=== PATIENT | female | born 1990 | race American Indian/Alaskan Native ===

== ENCOUNTER 2021-07-05 21:43 | Inpatient (IN) | payer SELFPAY ==
[2021-07-05] MEDS ORDERED: PANTOPRAZOLE 40 MG INJ IV ONE (22:17)
[2021-07-05] MEDS ORDERED: SODIUM CHLORIDE 0.9% 1000 ML 1,000 ML IV ONE ×2 (22:17→22:53)
[2021-07-05] MEDS ORDERED: MORPHINE 4 MG/1 ML INJ IV ONE (22:17)
--- NOTE | 2021-07-05 22:17 | XRay Report ---
CHEST 1 VIEW 07/05/2021 9:57 PM INDICATION / CLINICAL INFORMATION: GI Bleed. COMPARISON: None available. FINDINGS: SUPPORT DEVICES: None. HEART / MEDIASTINUM: No significant abnormality. LUNGS / PLEURA: No significant pulmonary or pleural abnormality. No pneumothorax. ADDITIONAL FINDINGS: No significant additional findings. IMPRESSION: 1. No acute findings. Signer Name: Sherman Merrill MD Signed: 07/05/2021 10:13 PM Workstation Name: [id number]
[2021-07-05 22:26] LABS: Basophils # (Auto) 0.1 K/mm3 (0.0-0.1); Basophils % (Auto) 0.7 % (0.0-1.8); Eosinophils % (Auto) 0.1 % (0.0-4.3); Hemoglobin 16.2 gm/dl (10.1-14.3); Lymphocytes % (Auto) 17.8 % (13.4-35.0); Mean Corpuscular HGB Conc 34 % (30-34); Mean Corpuscular Volume 96 fl (79-97); Monocytes # (Auto) 0.5 K/mm3 (0.0-0.8); Monocytes % (Auto) 4.6 % (0.0-7.3); Platelet Count 327 K/mm3 (140-440); Red Blood Count 4.89 M/mm3 (3.65-5.03); Red Cell Distribution Width 15.2 % (13.2-15.2)
[2021-07-05 22:40] LABS: INR 0.85 (0.87-1.13)
[2021-07-05 22:43] LABS: Alanine Aminotransferase 22 units/L (7-56); Albumin 4.4 g/dL (3.9-5); BUN/Creatinine Ratio 15; Blood Urea Nitrogen 12 mg/dL (7-17); Calcium 9.3 mg/dL (8.4-10.2); Hemolysis Index 29
[2021-07-05] MEDS ORDERED: ONDANSETRON 4 MG/2 ML INJ IV ONE (22:53)
--- NOTE | 2021-07-05 23:04 | Cat Scan Report ---
CT ABDOMEN AND PELVIS WITH CONTRAST HISTORY: PAIN COMPARISON: None TECHNIQUE: Routine abdominal and pelvic CT exam performed following intravenous contrast administrat ion. 100 cc Omnipaque [address] scans at this location are performed using CT dose reduct ion for ALARA by means of automated exposure control. FINDINGS: CT ABDOMEN: Lung Bases: No significant abnormality. Liver: No significant abnormality. Biliary: No significant abnormality. Spleen: No significant abnormality. Unenlarged. Pancreas: No significant abnormality. Adrenals: No significant abnormality. Kidneys: No significant abnormality. Lymphatics: No lymphadenopathy. Vasculature: No significant abnormality. Bowel/Peritoneum: No significant abnormality. No free air. No free fluid. Normal appendix. CT PELVIC: : IUD in the uterus. Lymphatics: No lymphadenopathy. Osseous Structures: No aggressive appearing osseous lesions. Additional Findings: None IMPRESSION: 1. No acute findings or findings to explain the patient's symptoms. Signer Name: Alex French MD Signed: 07/05/2021 11:00 PM Workstation Name: [id number]
--- NOTE | 2021-07-05 23:38 | Emergency Department Report ---
ED N/V/D HPI - General Chief complaint: Abdominal Pain Stated complaint: ABDONINAL PAIN Time Seen by Provider: 07/05/21 21:52 Source: patient Mode of arrival: Ambulatory Limitations: No Limitations - History of Present Illness Initial comments: ABDOMINAL PAIN AND VOMITING BLOOD SINCE YESTERDAY. [place] , [place] , started vomiting last night then started having severe vomiting with blood clots , admit to drinking daily and sometimes uses cocaine not , - Related Data Previous Rx's Medication Instructions Recorded Last Taken Type Multivitamin Tab W-MINERAL 1 each PO QDAY #30 tablet 07/06/21 Unknown Rx [Multiple Vitamin/Mineral (Theragran M)] Pantoprazole [Protonix TAB] 40 mg PO BIDAC #30 tablet 07/06/21 Unknown Rx Thiamine [Vitamin B-1] 100 mg PO QDAY #30 tablet 07/06/21 Unknown Rx Allergies Allergy/AdvReac Type Severity Reaction Status Date / Time No Known Allergies Allergy Verified 07/05/21 22:13 ED Review of Systems ROS: Stated complaint: ABDONINAL PAIN Other details as noted in HPI Constitutional: denies: chills, fever Eyes: denies: eye pain, eye discharge, vision change ENT: denies: ear pain, throat pain Respiratory: denies: cough, shortness of breath, wheezing Cardiovascular: denies: chest pain, palpitations Endocrine: no symptoms reported Gastrointestinal: denies: abdominal pain, nausea, diarrhea Genitourinary: denies: urgency, dysuria, discharge Musculoskeletal: denies: back pain, joint swelling, arthralgia Skin: denies: rash, lesions Neurological: denies: headache, weakness, paresthesias Psychiatric: denies: anxiety, depression Hematological/Lymphatic: denies: easy bleeding, easy bruising ED Past Medical Hx - Past Medical History Previous Medical History?: No Hx Hypertension: No Hx CVA: No - Surgical History Past Surgical History?: No - Social History Smoking Status: Current Every Day Smoker Substance Use Type: Alcohol, Cocaine, Marijuana - Medications Home Medications: Home Medications Medication Instructions Recorded Confirmed Last Taken Type Multivitamin Tab W-MINERAL 1 each PO QDAY #30 tablet 07/06/21 Unknown Rx [Multiple Vitamin/Mineral (Theragran M)] Pantoprazole [Protonix TAB] 40 mg PO BIDAC #30 tablet 07/06/21 Unknown Rx Thiamine [Vitamin B-1] 100 mg PO QDAY #30 tablet 07/06/21 Unknown Rx ED Physical Exam - General Limitations: No Limitations General appearance: alert, in distress, other (activeky vomiting ) - Head Head exam: Present: atraumatic, normocephalic - Eye Eye exam: Present: normal appearance - ENT ENT exam: Present: mucous membranes moist, other (red muccous membrane ) - Neck Neck exam: Present: normal inspection - Respiratory Respiratory exam: Present: normal lung sounds bilaterally. Absent: respiratory distress - Cardiovascular Cardiovascular Exam: Present: normal rhythm, tachycardia. Absent: systolic murmur, diastolic murmur, rubs, gallop - GI/Abdominal GI/Abdominal exam: Present: tenderness, normal bowel sounds - Rectal Rectal exam: Present: heme (-) stool - Extremities Exam Extremities exam: Present: normal inspection - Back Exam Back exam: Present: normal inspection - Neurological Exam Neurological exam: Present: alert, oriented X3 - Psychiatric Psychiatric exam: Present: normal affect, normal mood - Skin Skin exam: Present: warm, dry, intact, normal color. Absent: rash ED Course Vital Signs 07/05/21 07/05/21 07/05/21 21:47 22:38 23:07 Temperature 98 F Pulse Rate 128 H 97 H Respiratory 24 20 Rate Blood Pressure 150/103 Blood Pressure 131/93 [Right] O2 Sat by Pulse 100 100 100 Oximetry 07/06/21 02:46 Temperature Pulse Rate 88 Respiratory 15 Rate Blood Pressure Blood Pressure 151/97 [Right] O2 Sat by Pulse 100 Oximetry ED Medical Decision Making - Lab Data Result diagrams: 07/06/21 08:55 07/05/21 22:01 - EKG Data -: EKG Interpreted by Sc EKG shows normal: sinus rhythm Rate: tachycardia - EKG Data When compared to previous EKG there are: no significant change - Radiology Data Radiology results: report reviewed, image reviewed - Medical Decision Making meds given , fluids ppi and nause and pain meds, feels better , CT scan was negative as well as x ray , heme neg stools stable H.H , vss, hospitalist will assess for forther dispo Critical care attestation.: If time is entered above; I have spent that time in minutes in the direct care of this critically ill patient, excluding procedure time. ED Disposition Clinical Impression: Hematemesis, Lashell-Mc tear Disposition: INPATIENT Is pt being admited?: No Does the pt Need Aspirin: No Condition: Stable
[2021-07-05 23:44] LABS: Amphetamine Screen,Urine PRESUMPTIVE NEGATIVE; Benzodiazepines Screen,Urine PRESUMPTIVE NEGATIVE; Cannabinoid Screen,Urine PRESUMPTIVE POSITIVE; Cocaine Screen,Urine PRESUMPTIVE NEGATIVE; Methadone Screen,Urine PRESUMPTIVE NEGATIVE; Opiate Screen,Urine PRESUMPTIVE NEGATIVE
[2021-07-05 23:52] LABS: Bacteria,Urine 1+ /HPF (Negative); Bilirubin,Urine NEG (Negative); Blood,Urine SM (Negative); Color,Urine Straw (Yellow); Urobilinogen,Urine < 2.0 mg/dL (<2.0)
[2021-07-05 23:52] LABS: HCG Qualitative,Urine Negative (Negative)
--- NOTE | 2021-07-06 00:46 | History and Physical Report ---
History of Present Illness Date of examination: 07/06/21 Date of admission: July 06, 2021 Chief complaint: Pain abdomen and vomiting blood off and on for 3 days History of present illness: 31-year-old black female with no significant past medical history except for al coholism comes in for severe epigastric pain for 3 days associated with retching and vomiting. Also vomited blood intermittently for the last 3 days. Bright red blood. No lightheadedness or syncope. Continues to have retching and vomiting. And intermittent abdominal pain which is 8 on a scale of 1-10. Pain is localized to epigastric region. Patient had 1 bottle of tequila in the form of shots 3 days ago. Drinks on a regular basis. Also drinks heavily. Smokes about 1 to 2 packets a day. Does marijuana on a regular basis. Occasionally cocaine. No fever or chills. - Past Medical History --Depression. - Surgical History --Past Surgical History?: No - Social History --Smoking Status: Current Every Day Smoker-1 to 2 packets a day. --Substance Use Type: Alcohol excessively. --1 bottle of tequila in the form of shots. Cocaine occasionally., Marijuana on a regular basis. -Family history -- HTN Review of Systems ROS: Stated complaint: ABDONINAL PAIN Other details as noted in HPI Gastrointestinal: Persistent epigastric pain, vomiting and retching, vomiting blood intermittently. Constitutional: denies: chills, fever Eyes: denies: eye pain, eye discharge, vision change ENT: denies: ear pain, throat pain Respiratory: denies: cough, shortness of breath, wheezing Cardiovascular: denies: chest pain, palpitations Endocrine: no symptoms reported Genitourinary: denies: urgency, dysuria, discharge Musculoskeletal: denies: back pain, joint swelling, arthralgia Skin: denies: rash, lesions Neurological: denies: headache, weakness, paresthesias Psychiatric: denies: anxiety, depression Hematological/Lymphatic: denies: easy bleeding, easy bruising Medications and Allergies Allergies Allergy/AdvReac Type Severity Reaction Status Date / Time No Known Allergies Allergy Verified 07/05/21 22:13 Exam - Constitutional Vitals: Temp Pulse Resp BP Pulse Ox 98 F 97 H 20 131/93 100 07/05/21 21:47 07/05/21 23:07 07/05/21 23:07 07/05/21 23:07 07/05/21 23:07 General appearance: Present: mild distress, well-nourished - EENT Eyes: Present: PERRL ENT: hearing intact, clear oral mucosa - Neck Neck: Present: supple, normal ROM - Respiratory Respiratory effort: normal Respiratory: bilateral: CTA - Cardiovascular Heart rate: 98 Rhythm: regular Heart Sounds: Present: S1 & S2. Absent: rub, click - Extremities Extremities: no ischemia, pulses intact, pulses symmetrical, No edema Peripheral Pulses: within normal limits - Abdominal General gastrointestinal: Present: soft, tender, non-distended, normal bowel sounds Localized gastrointestinal: tender: epigastric periumbilical, guarding: epigastric periumbilical, rebound: epigastric periumbilical Female genitourinary: Present: normal - Integumentary Integumentary: Present: clear, warm, dry - Musculoskeletal Musculoskeletal: gait normal, strength equal bilaterally - Psychiatric Psychiatric: appropriate mood/affect, intact judgment & insight - Neurologic Neurologic: CNII-XII intact, moves all extremities - Allied Health Allied health notes reviewed: nursing, case management Results - Labs CBC & Chem 7: 07/05/21 22:01 07/05/21 22:01 Labs: Laboratory Last Values WBC 11.2 K/mm3 (4.5-11.0) H 07/05/21 22:01 RBC 4.89 M/mm3 (3.65-5.03) 07/05/21 22:01 Hgb 16.2 gm/dl (10.1-14.3) H 07/05/21 22:01 Hct 47.0 % (30.3-42.9) H 07/05/21 22:01 MCV 96 fl (79-97) 07/05/21 22:01 MCH 33 pg (28-32) H 07/05/21 22:01 MCHC 34 % (30-34) 07/05/21 22:01 RDW 15.2 % (13.2-15.2) 07/05/21 22:01 Plt Count 327 K/mm3 (140-440) 07/05/21 22:01 Lymph % (Auto) 17.8 % (13.4-35.0) 07/05/21 22:01 [place] % (Auto) 4.6 % (0.0-7.3) 07/05/21 22:01 Eos % (Auto) 0.1 % (0.0-4.3) 07/05/21 22:01 Baso % (Auto) 0.7 % (0.0-1.8) 07/05/21 22:01 Lymph # (Auto) 2.0 K/mm3 (1.2-5.4) 07/05/21 22: [place] # (Auto) 0.5 K/mm3 (0.0-0.8) 07/05/21 22: Eos # (Auto) 0.0 K/mm3 (0.0-0.4) 07/05/21 22:01 Baso # (Auto) 0.1 K/mm3 (0.0-0.1) 07/05/21 22:01 Seg Neutrophils % 76.8 % (40.0-70.0) H 07/05/21 22: Seg Neutrophils # 8.6 K/mm3 (1.8-7.7) H 07/05/21 22: PT 12.5 Sec. (12.2-14.9) 07/05/21 22: INR 0.85 (0.87-1.13) L 07/05/21 22:01 Sodium 143 mmol/L (137-145) 07/05/21 22: Potassium 3.4 mmol/L (3.6-5.0) L 07/05/21 22: Chloride 96.6 mmol/L (98-107) L 07/05/21 22: Carbon Dioxide 23 mmol/L (22-30) 07/05/21 22: Anion Gap 27 mmol/L 07/05/21 22: BUN 12 mg/dL (7-17) 07/05/21 22: Creatinine 0.8 mg/dL (0.6-1.2) 07/05/21 22: Estimated GFR > 60 ml/min 07/05/21 22: BUN/Creatinine Ratio 15 % 07/05/21 22: Glucose 118 mg/dL (65-100) H 07/05/21 22:01 Calcium 9.3 mg/dL (8.4-10.2) 07/05/21 22: Magnesium 1.40 mg/dL (1.7-2.3) L 07/05/21 22:01 Total Bilirubin 0.60 mg/dL (0.1-1.2) 07/05/21 22:01 AST 35 units/L (5-40) 07/05/21 22:01 ALT 22 units/L (7-56) 07/05/21 22:01 Alkaline Phosphatase 90 units/L (35-129) 07/05/21 22:01 Total Protein 8.3 g/dL (6.3-8.2) H 07/05/21 22:01 Albumin 4.4 g/dL (3.9-5) 07/05/21 22:01 Albumin/Globulin Ratio 1.1 % 07/05/21 22:01 Lipase 53 units/L (13-60) 07/05/21 22:01 HCG, Qual Negative (Negative) 07/05/21 22:30 Urine Color Straw (Yellow) 07/05/21 23:23 Urine Turbidity Clear (Clear) 07/05/21 23:23 Urine pH 9.0 (5.0-7.0) H 07/05/21 23:23 Ur Specific [place] 1.020 (1.003-1.030) 07/05/21 23:23 Urine Protein 100 mg/dl mg/dL (Negative) 07/05/21 23:23 Urine Glucose (UA) Neg mg/dL (Negative) 07/05/21 23:23 Urine Ketones Tr mg/dL (Negative) 07/05/21 23:23 Urine Blood Sm (Negative) 07/05/21 23:23 Urine Nitrite Neg (Negative) 07/05/21 23:23 Urine Bilirubin Neg (Negative) 07/05/21 23:23 Urine Urobilinogen < 2.0 mg/dL (<2.0) 07/05/21 23:23 Ur Leukocyte Esterase Neg (Negative) 07/05/21 23:23 Urine WBC (Auto) 10.0 /HPF (0.0-6.0) H 07/05/21 23:23 Urine RBC (Auto) 2.0 /HPF (0.0-6.0) 07/05/21 23:23 U Epithel Cells (Auto) 4.0 /HPF (0-13.0) 07/05/21 23:23 Urine Bacteria (Auto) 1+ /HPF (Negative) 07/05/21 23:23 Urine HCG, Qual Negative (Negative) 07/05/21 23:07 Urine Opiates Screen Presumptive negative 07/05/21 23:07 Urine Methadone Screen Presumptive negative 07/05/21 23:07 Ur Barbiturates Screen Presumptive negative 07/05/21 23:07 Ur Phencyclidine Scrn Presumptive negative 07/05/21 23:07 Ur Amphetamines Screen Presumptive negative 07/05/21 23:07 U Benzodiazepines Scrn Presumptive negative 07/05/21 23:07 Urine Cocaine Screen Presumptive negative 07/05/21 23:07 U Marijuana (THC) Screen Presumptive positive 07/05/21 23:07 Drugs of Abuse Note Disclamer 07/05/21 23:07 Plasma/Serum Alcohol < 0.01 % (0-0.07) 07/05/21 22:30 Short CBC 07/05/21 07/06/21 Range/Units 22:01 01:25 WBC 11.2 H (4.5-11.0) K/mm3 Hgb 16.2 H 14.3 (10.1-14.3) gm/dl Hct 47.0 H 41.3 (30.3-42.9) % Plt Count 327 (140-440) K/mm3 BMP 07/05/21 22:01 Sodium 143 Potassium 3.4 L Chloride 96.6 L Carbon Dioxide 23 BUN 12 Creatinine 0.8 Glucose 118 H Calcium 9.3 Liver Function 07/05/21 Range/Units 22:01 Total Bilirubin 0.60 (0.1-1.2) mg/dL AST 35 (5-40) units/L ALT 22 (7-56) units/L Alkaline Phosphatase 90 (35-129) units/L Albumin 4.4 (3.9-5) g/dL Urine 07/05/21 Range/Units 23:23 Urine Color Straw (Yellow) Urine pH 9.0 H (5.0-7.0) Ur Specific [place] 1.020 (1.003-1.030) Urine Protein 100 mg/dl (Negative) mg/dL Urine Glucose (UA) Neg (Negative) mg/dL - Imaging and Cardiology Chest x-ray: report reviewed CT scan - abdomen: report reviewed Imaging and Cardiology: Chest x-ray No acute findings Abdominal CAT scan No acute findings Assessment and Plan Advance Directives: Yes (Full code) VTE prophylaxis?: Mechanical Contraindication Mechanical VTE Prophylaxis: Contraindicated Plan of care discussed with patient/family: Yes - Patient Problems (1) Upper GI bleed Current Visit: Yes Status: Acute Plan to address problem: Possibly secondary to vomiting and retching causing Lashell-Mc tear IV Protonix for now Frequent hemoglobin and hematocrit Transfuse if necessary GI consult Will defer EGD to GI (2) Acute gastritis with bleeding Current Visit: Yes Status: Acute Qualifiers: Gastritis type: alcoholic Qualified Code(s): K29.21 - Alcoholic gastritis with bleeding Plan to address problem: IV Protonix for now IV fluids Transfuse if necessary (3) EtOH dependence Current Visit: Yes Status: Acute Qualifiers: Substance use status: in withdrawal Plan to address problem: CIWA protocol initiated IV fluids next IV Protonix (4) Hypokalemia Current Visit: Yes Status: Acute Plan to address problem: Supplemented (5) Polysubstance abuse Current Visit: Yes Status: Chronic Plan to address problem: Patient uses cocaine and marijuana Patient counseled Mental health consult requested (6) Polycythemia due to fall in plasma volume Current Visit: Yes Status: Acute Plan to address problem: IV fluids for now (7) DVT prophylaxis Current Visit: Yes Status: Acute Plan to address problem: On SCDs and Protonix drip No heparin or Lovenox because of GI bleed (8) Advance care planning Current Visit: Yes Status: Acute Plan to address problem: Disease education conducted, care plan discussed, diagnosis discussed, prognosis discussed. Patient is full code. Patient family member acknowledges understanding and agreement with care plan +30 minutes
[2021-07-06] MEDS ORDERED: METOCLOPRAMIDE 10 MG/2 ML INJ IV PRN (00:47)
[2021-07-06] MEDS ORDERED: ACETAMINOPHEN 325 MG TAB PO PRN (00:47)
[2021-07-06] MEDS ORDERED: MORPHINE 2 MG/1 ML INJ IV PRN (00:47)
[2021-07-06] MEDS ORDERED: ONDANSETRON 4 MG/2 ML INJ IV PRN (00:47)
[2021-07-06] MEDS ORDERED: HYDROmorphone 1 MG/1 ML INJ IV PRN (00:47)
[2021-07-06] MEDS ORDERED: D5W/0.9% NACL 1,000 ML IV SCH (01:00)
[2021-07-06] MEDS ORDERED: PANTOPRAZOLE 80 MG in SODIUM CHLORIDE 0.9% 100 ML IV SCH (01:00)
[2021-07-06 01:43] LABS: Hematocrit 41.3 % (30.3-42.9); Hemoglobin 14.3 gm/dl (10.1-14.3)
[2021-07-06 09:10] LABS: Hematocrit 41.6 % (30.3-42.9); Hemoglobin 14.7 gm/dl (10.1-14.3)
[2021-07-06] MEDS ORDERED: LIDOCAINE MPF (2%) 20 MG/1 ML VIAL 5 ML ONE (10:27)
[2021-07-06] MEDS ORDERED: SODIUM CHLORIDE 0.9% 1000 ML 1,000 ML ONE (10:27)
[2021-07-06] MEDS ORDERED: propofoL 200 MG/20 ML VIAL IV ONE ×2 (10:27→10:36)
--- NOTE | 2021-07-06 10:29 | Anesthesia Day of Surgery ---
Anesthesia Day of Surgery - Day of Surgery Patient Examined: Yes Patient H&P Reviewed: Yes Patient is NPO: Yes
--- NOTE | 2021-07-06 10:29 | Anesthesia Consultation ---
Anesthesia Consult and Med Hx Date of service: 07/06/21 - Airway Anesthetic Teeth Evaluation: Good ROM Head & Neck: Adequate Mental/Hyoid Distance: Adequate Mallampati Class: Class II Intubation Access Assessment: Probably Good - Pre-Operative Health Status ASA Pre-Surgery Classification: ASA2 Proposed Anesthetic Plan: MAC - Pulmonary Hx Smoking: Yes (THC, occasional cigarettes) Hx Respiratory Symptoms: No - Cardiovascular System Hx Hypertension: No - Central Nervous System CVA: No - Endocrine Hx Renal Disease: No Hx Liver Disease: No Hx Insulin Dependent Diabetes: No Hx Non-Insulin Dependent Diabetes: No Hx Thyroid Disease: No - Hematic Hx Anemia: No - Other Systems Hx Alcohol Use: Yes Hx Substance Use: Yes (occasional cocaine (UDS neg this admission)) Hx Obesity: No
--- NOTE | 2021-07-06 10:46 | Post Operative Note ---
Pre-op diagnosis: hematemesis, epi pain Post-op diagnosis: same Findings: EGD: distal esophagitis (bx's) - small hiatal hernia - gastric erosions (bx's) - negative other Procedure: EGD w/ bx Anesthesia: MAC Surgeon: GEMMA ROBERSON Estimated blood loss: none Pathology: list Specimen disposition: to lab Condition: stable Disposition: floor
--- NOTE | 2021-07-06 10:51 | Progress Note ---
Assessment and Plan - Patient Problems (1) Upper GI bleed Current Visit: Yes Status: Acute Plan to address problem: Possibly secondary to vomiting and retching causing Lashell-Mc tear IV Protonix for now Frequent hemoglobin and hematocrit Transfuse if necessary GI consult Will defer EGD to GI (2) Acute gastritis with bleeding Current Visit: Yes Status: Acute Qualifiers: Gastritis type: alcoholic Qualified Code(s): K29.21 - Alcoholic gastritis with bleeding Plan to address problem: IV Protonix for now IV fluids Transfuse if necessary (3) EtOH dependence Current Visit: Yes Status: Acute Qualifiers: Substance use status: in withdrawal Plan to address problem: CIWA protocol initiated IV fluids next IV Protonix (4) Hypokalemia Current Visit: Yes Status: Acute Plan to address problem: Supplemented (5) Polysubstance abuse Current Visit: Yes Status: Chronic Plan to address problem: Patient uses cocaine and marijuana Patient counseled Mental health consult requested (6) Polycythemia due to fall in plasma volume Current Visit: Yes Status: Acute Plan to address problem: IV fluids for now (7) DVT prophylaxis Current Visit: Yes Status: Acute Plan to address problem: On SCDs and Protonix drip No heparin or Lovenox because of GI bleed (8) Advance care planning Current Visit: Yes Status: Acute Plan to address problem: Disease education conducted, care plan discussed, diagnosis discussed, prognosis discussed. Patient is full code. Patient family member acknowledges understanding and agreement with care plan +30 minutes Objective - Constitutional Vitals: Vital Signs - 12hr 07/05/21 07/06/21 07/06/21 23:07 02:46 03:31 Temperature 98.4 F Pulse Rate 97 H 88 85 Respiratory 20 15 16 Rate Blood Pressure 147/97 Blood Pressure 131/93 151/97 [Right] O2 Sat by Pulse 100 100 98 Oximetry 07/06/21 07/06/21 07/06/21 04:58 07:53 10:05 Temperature Pulse Rate Respiratory 16 Rate Blood Pressure Blood Pressure [Right] O2 Sat by Pulse 100 98 99 Oximetry - Labs CBC & Chem 7: 07/06/21 08:55 07/05/21 22:01 Labs: Abnormal lab results 07/05/21 07/05/21 07/05/21 Range/Units 22:01 22:01 22:01 WBC 11.2 H (4.5-11.0) K/mm3 Hgb 16.2 H (10.1-14.3) gm/dl Hct 47.0 H (30.3-42.9) % MCH 33 H (28-32) pg Seg Neutrophils % 76.8 H (40.0-70.0) % Seg Neutrophils # 8.6 H (1.8-7.7) K/mm3 INR 0.85 L (0.87-1.13) Potassium 3.4 L (3.6-5.0) mmol/L Chloride 96.6 L (98-107) mmol/L Glucose 118 H (65-100) mg/dL Magnesium 1.40 L (1.7-2.3) mg/dL Total Protein 8.3 H (6.3-8.2) g/dL Urine pH (5.0-7.0) Urine WBC (Auto) (0.0-6.0) /HPF 07/05/21 07/06/21 Range/Units 23:23 08:55 WBC (4.5-11.0) K/mm3 Hgb 14.7 H (10.1-14.3) gm/dl Hct (30.3-42.9) % MCH (28-32) pg Seg Neutrophils % (40.0-70.0) % Seg Neutrophils # (1.8-7.7) K/mm3 INR (0.87-1.13) Potassium (3.6-5.0) mmol/L Chloride (98-107) mmol/L Glucose (65-100) mg/dL Magnesium (1.7-2.3) mg/dL Total Protein (6.3-8.2) g/dL Urine pH 9.0 H (5.0-7.0) Urine WBC (Auto) 10.0 H (0.0-6.0) /HPF
--- NOTE | 2021-07-06 10:58 | Operative Report ---
DATE OF SURGERY: 07/06/2021 PROCEDURE: EGD with cold biopsies. DATE OF PROCEDURE: 07/06/2021 INDICATION: 1. Hematemesis. 2. Epigastric pain. MEDICATIONS: Propofol per [employer]ITCH[employer]ARD MANAGER. COMPLICATIONS: None. DESCRIPTION OF PROCEDURE: The patient was brought to the procedure suite. The patient had the procedure discussed with her at length. All risks, complications, and benefits discussed, after which the patient signed for the procedure to be performed. The patient was placed in left lateral decubitus position. Mouth block was placed in the patient's oral cavity. After adequate sedation with medications above, endoscope placed in the mouth and brought to level of second portion of duodenum. Retroflexion view performed. The patient's vital signs remained stable throughout the procedure. FINDINGS: There was mild to moderate grade I to II esophagitis noted in the distal 3-4 cm of the esophagus. Biopsies were taken and sent for pathology. GE junction was noted to be at 35 cm. Small hiatal hernia at gastroesophageal junction. The esophagus otherwise appeared to be normal. Mild antral gastritis noted with a few small erosions. Biopsies taken and sent to pathology. Remaining stomach otherwise appeared to be normal. The duodenum appeared to be normal. Retroflexion view performed in the stomach showed no other pathology other than noted above. The patient tolerated the procedure well. No complications noted during procedure. IMPRESSION: 1. Hiatal hernia. 2. Esophagitis distal esophagus, most likely cause of patient's bleeding. Biopsies taken. 3. Gastritis with biopsies taken. 4. Otherwise, normal EGD. RECOMMENDATIONS: 1. Follow up biopsy results. 2. If H. pylori positive, we will treat. 3. PPI daily. 4. Advance diet. 5. If tolerating p.o., okay to discharge from the GI standpoint. TID: [id number] RECEIPT: [id number] CAB/DSD
--- NOTE | 2021-07-06 11:05 | Post Anesthesia Evaluation ---
- Post Anesthesia Evaluation Patient Participated: Yes Airway Patent: Yes Stable Respiratory Function: Yes Nausea/Vomiting: No Temp > 96.8F: Yes Pain Manageable: Yes Adequeate Hydration: Yes Anesthesia Complications: No
[2021-07-06 12:58] VITALS: BP 134/86
--- NOTE | 2021-07-06 13:11 | Discharge Summary ---
Providers - Providers Date of Admission: 07/06/21 00:47 Date of discharge: 07/06/21 Attending physician: HONG BARNES 07/06/21 00:47 Consult to Physician [CONS] Routine Comment: Consulting Provider: BIANCA HOFFMANN Physician Instructions: Reason For Exam: Upper GI bleed Primary care physician: AUDI LOZANO Hospitalization Condition: Stable Pertinent studies: EGD showed erosive gastritis Hospital course: Patient 31-year-old female that presents with alcohol abuse polysubstance abuse. Came in with persistent nausea and vomiting hematemesis. Patient underwent EGD which showed erosive gastritis. No active bleeding. Secondary to alcohol use and abuse. Patient stabilized to discharge. Hemoglobin hematocrit remained stable. No further nausea vomiting. Patient able to eat. Stable for discharge follow-up with primary care physician 3 to 5 days. Disposition: 01 HOME / SELF CARE / HOMELESS Final Discharge Diagnosis (Prints w/discharge instructions): Acute GI blood loss anemia alcohol withdrawal Core Measure Documentation - Palliative Care Palliative Care/ Comfort Measures: Not Applicable - Core Measures Any of the following diagnoses?: none Exam - Constitutional Vitals: Temp Pulse Resp BP Pulse Ox 98.6 F 90 17 134/86 99 07/06/21 11:00 07/06/21 11:00 07/06/21 11:00 07/06/21 11:00 07/06/21 11:00 General appearance: Present: no acute distress, well-nourished - EENT Eyes: Present: PERRL ENT: hearing intact, clear oral mucosa - Neck Neck: Present: supple, normal ROM - Respiratory Respiratory effort: normal Respiratory: bilateral: CTA - Cardiovascular Heart Sounds: Present: S1 & S2. Absent: rub, click - Extremities Extremities: pulses symmetrical, No edema Peripheral Pulses: within normal limits - Abdominal General gastrointestinal: Present: soft, non-tender, non-distended, normal bowel sounds Female genitourinary: Present: normal - Integumentary Integumentary: Present: clear, warm, dry - Musculoskeletal Musculoskeletal: gait normal, strength equal bilaterally - Psychiatric Psychiatric: appropriate mood/affect, intact judgment & insight - Neurologic Neurologic: CNII-XII intact, moves all extremities Plan Activity: no restrictions, other (No alcohol use at all) Weight Bearing Status: Full Weight Bearing Diet: clear liquids, other (Clear liquids then advance as tolerated 24 hours.) Follow up with: AUDI LOZANO MD [Primary Care Provider] - 7 Days Prescriptions: Multivitamin Tab W-MINERAL [Multiple Vitamin/Mineral (Theragran M)] 1 each PO QDAY #30 tablet Pantoprazole [Protonix TAB] 40 mg PO BIDAC #30 tablet Thiamine [Vitamin B-1] 100 mg PO QDAY #30 tablet
[2021-07-06] MEDS ORDERED: MULTIVITAMINS,THER W-MINERALS TAB PO SCH (14:00)
[2021-07-06] MEDS ORDERED: THIAMINE 100 MG TAB PO SCH (15:00)
[2021-07-06 16:22] LABS: Hematocrit 43.1 % (30.3-42.9); Hemoglobin 14.8 gm/dl (10.1-14.3)
[2021-07-06] MEDS ORDERED: PANTOPRAZOLE 40 MG TAB PO SCH (16:30)
--- NOTE | 2021-07-06 22:54 | Consultation ---
DATE OF CONSULTATION: 07/06/2021 REFERRING PHYSICIAN: Calvin Blair M.D. INDICATION: 1. Coffee emesis. 2. Gastrointestinal bleed. HISTORY OF PRESENT ILLNESS: The patient is a 31-year-old black female with past medical history of alcohol abuse, presents for epigastric pain and hematemesis. The patient reports one bottle of tequila in the form of shots three days ago. She reports she started having significant epigastric pain with nausea and vomiting. She reports she eventually had hematemesis of coffee-brown material as well as blood clots. She denies a history of GI bleed in the past. She reports mild NSAID use. She denies any melena. The patient subsequently came to the Emergency Room, was evaluated, admitted and GI consulted. She denies any other specific other complaints. PAST MEDICAL HISTORY: Depression. MEDICATIONS: Reviewed and updated in chart. ALLERGIES: No known drug allergies. SOCIAL HISTORY: Reports 1-2 packs a day smoker. Occasional cocaine use, marijuana use and one bottle of tequila and shots over a couple of days, also alcohol use. FAMILY HISTORY: Negative for colon cancer, IBD or liver disease. REVIEW OF SYSTEMS: GENERAL: Reports some weakness. HEENT: Denies visual complaints or tinnitus. PULMONARY: Denies shortness of breath, chest pain. GASTROINTESTINAL: Reports epigastric upper abdominal pain. All points of 13-point review of system otherwise negative. PHYSICAL EXAMINATION: VITAL SIGNS: Temperature of 98.4, pulse 84, respirations 18, blood pressure 147/97. GENERAL: Fairly nourished female, in mild distress. HEENT: Pupils round, reactive. PULMONARY: Clear to auscultation bilaterally. CARDIOVASCULAR: Regular rate and rhythm. Normal S1, S2. ABDOMEN: Soft. Mild epigastric pain. SKIN: No obvious rashes. LABORATORY DATA: Pertinent for white count of 11.2, hemoglobin and hematocrit of 16 and 47, platelet count of 327. Coags within normal limits. Chem-7: Sodium of 143, potassium 3.4, chloride 97, CO2 of 23, BUN and creatinine of 12 and 0.8. LFTs within normal limits. CT scan of abdomen and pelvis with contrast on 07/05/2021 showed no acute findings. ASSESSMENT: A 31-year-old black female with history of alcohol use with reportedly two bottles of tequila shots over a couple of days, now with epigastric upper abdominal pain with hematemesis. Possibility of peptic ulcer disease versus Lashell-Mc tear versus other. PLAN: 1. PPI IV b.i.d. 2. Follow hematocrit and transfuse as needed. 3. N.p.o. 4. Plan EGD today. TID: [id number] RECEIPT: [id number] [facility]
--- NOTE | 2021-07-07 15:06 | Electrocardiograph Report ---
[facility] Test Date: 2021-07-06 Test Time: 09:23:26 Pat Name: CHIVO PEREIRA Department: Room: A379 1 Gender: F Firmware Developer: EASTON : 1990 Requested By: AMY JAIMES Order Number: [id number] Reading MD: Marino Beltran Measurements Intervals [place] Rate: 59 P: 49 CA: 150 QRS: 44 QRSD: 88 T: 35 QT: 449 QTc: 447 Interpretive Statements Sinus rhythm No previous ECG available for comparison TEJAS Electronically Signed On 07-07-2021 15:06:15 EDT by Marino Beltran
== END 2021-07-06 16:25 | disposition home or self-care (01) | DRG 368 ==
LOC: ED 21:43 → 3A 07-06 00:47
PROVIDERS: ADMIT Internal Medicine; ATTEND Internal Medicine
PROC: 0DB68ZX Excision of Stomach, Via Natural or Artificial Opening Endoscopic, Diagnostic (ICD-10-PCS; principal; 2021-07-06)
PROC: 0DB58ZX Excision of Esophagus, Via Natural or Artificial Opening Endoscopic, Diagnostic (ICD-10-PCS; 2021-07-06)
DX: K20.91 Esophagitis, unspecified with bleeding (principal); K29.71 Gastritis, unspecified, with bleeding; K22.6 Gastro-esophageal laceration-hemorrhage syndrome; D62 Acute posthemorrhagic anemia; F17.200 Nicotine dependence, unspecified, uncomplicated; F32.9 Major depressive disorder, single episode, unspecified; K44.9 Diaphragmatic hernia without obstruction or gangrene; F10.20 Alcohol dependence, uncomplicated; E87.6 Hypokalemia; F19.10 Other psychoactive substance abuse, uncomplicated; D75.1 Secondary polycythemia
CPT/HCPCS: 36415; 71045; 74177; 80053; 80307; 80320; 81001; 81025; 83690; 83735; 84703; 85014; 85018; 85025; 85610; 87086; 88305; 93005; G0378; J3490; J7120; Q0162; C9113; G0480; J1170; J2270; J2405; J2704; J2765; J7030; J7042; Q9967